=== PATIENT | male | born 1970 | race Caucasian/White ===

== ENCOUNTER 2019-07-04 11:11 | Emergency (ER) | payer OTHER ==
[~2019-07-04] VITALS: Ht 172.7 cm; Wt 72.6 kg
[2019-07-04 11:40] LABS: ABSOLUTE BASOPHILS 0.1 thou/uL (0.0-0.2); ABSOLUTE EOSINOPHILS 0.1 thou/uL (0.0-0.7); ABSOLUTE LYMPHOCYTES 2.1 thou/uL (0.8-5.3); ABSOLUTE MONOCYTES 0.5 thou/uL (0.0-1.2); ABSOLUTE NEUTROPHILS 4.2 thou/uL (1.6-8.1); BASOPHILS 1.1 %; EOSINOPHILS 1.8 %; HEMATOCRIT 45.5 % (42.0-52.0); HEMOGLOBIN 15.6 gm/dL (14.0-18.0); LYMPHOCYTES 30.5 %; MCHC 34.2 g/dL (28.0-37.0); MCV 90.7 fL (80.0-100.0); MONOCYTES 7.1 %; NUCLEATED RBCS 0 /100WBC; PLATELET COUNT* 316 thou/uL (150-400); POLYS 59.5 %; RBC 5.02 mil/uL (4.50-6.00)
[2019-07-04 11:52] LABS: CALCIUM 9.5 mg/dL (8.5-10.1); CREATININE 1.1 mg/dL (0.6-1.3); POTASSIUM 3.8 mmol/L (3.5-5.1)
[2019-07-04 11:56] LABS: ALBUMIN 3.9 g/dL (3.4-5.0); TOTAL BILIRUBIN 0.2 mg/dL (<0.1-1.0); TOTAL PROTEIN 7.5 g/dL (6.4-8.2)
[2019-07-04 12:03] LABS: URINE BILIRUBIN NEGATIVE (Negative); URINE BLOOD NEGATIVE (Negative); URINE CLARITY CLEAR; URINE COLOR YELLOW; URINE GLUCOSE-RANDOM NEGATIVE (Negative); URINE KETONES NEGATIVE (Negative); URINE LEUKOCYTES-REFLEX NEGATIVE (Negative); URINE NITRITE-REFLEX NEGATIVE (Negative); URINE PROTEIN NEGATIVE (Negative); URINE SPECIFIC GRAVITY 1.025 (1.005-1.030); URINE UROBILINOGEN 0.2 E.U./dl (0.2-1.0)
[2019-07-04] MEDS ORDERED: NORCO 5-325 TA1 EAC1 PO (13:30)
[2019-07-04] MEDS ORDERED: ZOFRAN ODT4 MG DISSOLVE (13:30)
[2019-07-04] MEDS ORDERED: CITRATE OF MAG296 M1 PO (13:40)
[2019-07-04 13:47] VITALS: BP 135/76
--- NOTE | 2019-07-05 16:19 | EKG ---
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1970 Requested By: Sara Acevedo Order Number: [id number] MD: Gucci Vazquez Measurements Intervals [place] Flat Rate: 70 P: 72 DE: 117 QRS: 70 QRSD: 89 T: 53 QT: 383 QTc: 414 Interpretive Statements Sinus rhythm Borderline short DE interval ST elev, probable normal early repol pattern Compared to ECG 04/30/2006 16:58:51 ST (T wave) deviation now present Electronically Signed On 07-05-2019 16:19:02 CDT by Gucci Vazquez [email or web address] <ELECTRONICALLY SIGNED> By: Gucci Vazquez MD, [facility] 07/05/19 1619 1143 1143 Gucci Vazquez MD, [facility] /EPI
== END 2019-07-04 13:48 | disposition home or self-care (01) ==
LOC: M.ERS 11:11
PROVIDERS: Nurse Practitioner Family
DX: R10.31 Right lower quadrant pain (principal); F17.210 Nicotine dependence, cigarettes, uncomplicated; Z98.890 Other specified postprocedural states

== ENCOUNTER 2021-10-04 00:46 | Emergency (ER) | payer OTHER, MEDICAID ==
[~2021-10-04] VITALS: Ht 170.2 cm; Wt 72.6 kg
[~2021-10-04 00:46] MED LIST: CITRATE OF MAG296 M1 PO; NORCO 5-325 TA1 EAC1 PO; ZOFRAN ODT4 MG DISSOLVE
[2021-10-04 02:20] LABS: INFLUENZA A ANTIGEN Negative (Negative); INFLUENZA B ANTIGEN Negative (Negative)
[2021-10-04] MEDS ORDERED: PROMETH-CODEIN 65 ML PO (02:23)
[2021-10-04 02:31] VITALS: BP 144/79
[2021-10-05] MEDS ORDERED: ZOFRAN ODT4 MG PO (06:27)
== END 2021-10-04 02:31 | disposition home or self-care (01) ==
LOC: M.ERS 00:46
PROVIDERS: Emergency Medicine
DX: J06.9 Acute upper respiratory infection, unspecified (principal); Z20.822 Contact with and (suspected) exposure to COVID-19; F17.210 Nicotine dependence, cigarettes, uncomplicated

== ENCOUNTER 2021-10-05 01:56 | Emergency (ER) | payer OTHER, MEDICAID ==
[~2021-10-05] VITALS: Ht 170.2 cm; Wt 72.6 kg
[~2021-10-05 01:56] MED LIST changes: +PROMETH-CODEIN 65 ML PO
[2021-10-05 02:38] LABS: ABSOLUTE BASOPHILS 0.1 thou/uL (0.0-0.2); ABSOLUTE LYMPHOCYTES 0.9 thou/uL (0.8-5.3); ABSOLUTE MONOCYTES 1.3 thou/uL (0.0-1.2); BASOPHILS 0.5 %; EOSINOPHILS 0.1 %; HEMATOCRIT 43.4 % (42.0-52.0); HEMOGLOBIN 14.2 gm/dL (14.0-18.0); LYMPHOCYTES 7.9 %; MCH 29.5 pg (26.0-34.0); MCHC 32.7 g/dL (28.0-37.0); MCV 90.3 fL (80.0-100.0); MONOCYTES 11.8 %; NUCLEATED RBCS 0 /100WBC; PLATELET COUNT* 236 thou/uL (150-400); POLYS 79.7 %; RBC 4.81 mil/uL (4.50-6.00); RDW-CV 14.3 % (10.5-14.5); WBC 11.3 thou/uL (4.0-11.0)
[2021-10-05 02:49] LABS: CALCIUM 8.6 mg/dL (8.5-10.1); CREATININE 1.5 mg/dL (0.6-1.3); POTASSIUM 3.8 mmol/L (3.5-5.1)
[2021-10-05 02:53] LABS: ALBUMIN 4.1 g/dL (3.4-5.0); TOTAL BILIRUBIN 0.3 mg/dL (<0.1-1.0); TOTAL PROTEIN 8.1 g/dL (6.4-8.2)
[2021-10-05] MEDS ORDERED: ZOFRAN ODT4 MG PO (06:27)
[2021-10-05 07:19] VITALS: BP 127/87
== END 2021-10-05 07:20 | disposition home or self-care (01) ==
LOC: M.ERS 01:56
PROVIDERS: Emergency Medicine
DX: J06.9 Acute upper respiratory infection, unspecified (principal); K52.9 Noninfective gastroenteritis and colitis, unspecified; F17.210 Nicotine dependence, cigarettes, uncomplicated